=== PATIENT | female | born 1985 | race Two or more races ===

== ENCOUNTER 2017-10-15 21:48 | Emergency (ER) | payer MEDICAID ==
[~2017-10-15] VITALS: Ht 160 cm; Wt 79.8 kg
[2017-10-15 21:49] VITALS: BP 106/67
--- NOTE | 2017-10-15 22:55 | NUR ---
BBSELF C/C "R BREAST TENDERNESS/PAIN AND WARM TO TOUCH S/P ". PT C/O "I THINK I HAVE A FEVER". PT AMBULATED TO BED WITH A STEADY GAIT. PT PLACED ON MONITOR WITH VS WNL. PT RESTING IN BED IN NO ACUTE DISTRESS. AWATING MD CHEATHAM.
[2017-10-15] MEDS ORDERED: ACETAMINOPHEN ES 500 MG TABLET ONE (23:21)
[2017-10-15] MEDS ORDERED: ACETAMINOPHEN ES 500 MG TABLET PO ONE (23:30)
== END 2017-10-15 23:26 | disposition home or self-care (01) ==
LOC: ER 21:53
DX: N61.0 Mastitis without abscess (principal); J45.909 Unspecified asthma, uncomplicated
CPT/HCPCS: A4606; Z7610